=== PATIENT | male | born 1940 | race African-American/Black ===

== ENCOUNTER → 2016-05-19 | Outpatient (CLI) | payer MEDICARE ==
[2015-06-03 23:41] VITALS: BP 180/75
[~2016-05-19] MED LIST: ALLO300T PO; ASPI81TA2 PO; ATORVASTATIN CA80 MG PO; FINA5TAB4 PO; METO25TA9 PO; TAMS0.4C2 PO
--- NOTE | 2016-05-20 10:45 | SLEEP ---
DATE OF STUDY: 05/19/2016 ATTENDING PHYSICIAN: Dr. Oren Silvestre. The patient is 75 years old who weighs 270 pounds with a BMI of 38. The patient's Jerome score was 3. Sleep study was performed at [facility]. This was a split night study. During the night of study, the patient spent 496 minutes in bed and slept for 395 minutes with a sleep efficiency of 80%. The patient's sleep latency was 7 minutes with a REM latency of 178 minutes. Overall, sleep architecture showed increased stage I sleep, normal stage II and slow wave sleep and normal REM sleep. During the initial diagnostic portion of the study, the patient slept for 155 minutes. During this time, there were 10 obstructive apneas, 85 mixed apneas, no central apneas and 98 hypopneas. The patient's apnea/hypopnea index during the diagnostic portion was 75 per hour, supine index 72 per hour and REM index was 51 per hour. EKG monitoring revealed normal sinus rhythm. No sustained arrhythmias were observed. Average heart rate was 87 beats per minute. Review of nocturnal oximetry study revealed a mean oxygen saturation of 90% with the lowest of 77%. 29% of time oxygen saturation remained between 80% and 89%. PLMS were seen at index of 20 per hour, but only 1 per hour caused EEG arousals. The patient met the criteria for CPAP initiation. It was started at 5 cm of water and titrated up to 15 cm of water. Although there was a significant improvement in the patient's apnea/hypopnea index, but complete resolution was not obtained. The patient slept for 37 minutes at the final pressure of 15 cm of water and AHI was 13 per hour. The patient had a lateral REM sleep. The patient's saturation remained above 91% at the final pressure. IMPRESSION: 1. Severe sleep apnea-hypopnea syndrome with an AHI of 75 per hour. 2. Nocturnal hypoxia secondary to obstructive sleep apnea, but resolved with CPAP. 3. Moderate PLMS at an index of 20 per hour, but only 1 per hour caused EEG arousals. This does not need to be treated. RECOMMENDATIONS: 1. Optimum CPAP pressure was not achieved on this split night study. I would recommend that the patient should be placed on auto CPAP with a maximum pressure of 20 cm of water and a minimum pressure of 14 cm of water. 2. Follow up in 4-6 weeks along with a download information to assess compliance with CPAP and to document clinical improvement. Any adjustment in pressure can be made if the AHI remains above 5 per hour. 3. Weight loss is strongly advised. 4. Avoid [employer] depressants. 5. Caution regarding driving until symptoms of sleep apnea resolve with the use of CPAP. 6. Clinical evaluation for restless legs syndrome if indicated. LIAM BOTELLO MD DR: ZULEYMA/john JOB#: [id number] / [id number] OREN Karimi
== END | disposition home or self-care (01) ==
LOC: SLPLAB 18:31
PROVIDERS: ATTEND Family Medicine
DX: G47.33 Obstructive sleep apnea (adult) (pediatric) (principal)
CPT/HCPCS: 95810

== ENCOUNTER 2019-02-25 11:22 | Emergency (ER) | payer MEDICARE ==
[~2019-02-25] VITALS: Ht 180.3 cm; Wt 125.2 kg
[~2019-02-25 11:22] MED LIST changes: +ASPI-630 PO; -ASPI81TA2 PO; +METO-239 PO; -METO25TA9 PO
--- NOTE | 2019-02-25 11:52 | PHYS DOC ---
Past Medical History Past Medical History: High Cholesterol, Hypertension, Other Additional Past Medical Histor: prostate cancer Past Surgical History: Other Additional Past Surgical Histo: Prostate Alcohol Use: None Drug Use: None Adult General Chief Complaint Chief Complaint: COUGH HPI HPI Patient is a 78 year old male who presents with cough this been ongoing for 3 days. The patient also states she has associated symptoms's that he has been feeling sweaty, and hot and cold. Denies any pain at this time. Denies shortness of breath. States he has not taken any medication so far today. Review of Systems Review of Systems Constitutional: Denies fever or chills [] Eyes: Denies change in visual acuity, redness, or eye pain [] HENT: Denies nasal congestion or sore throat [] Respiratory: Reports cough. Cardiovascular: No additional information not addressed in HPI [] GI: Denies abdominal pain, nausea, vomiting, bloody stools or diarrhea [] : Denies dysuria or hematuria [] Musculoskeletal: Denies back pain or joint pain [] Integument: Denies rash or skin lesions [] Neurologic: Denies headache, focal weakness or sensory changes [] Endocrine: Denies polyuria or polydipsia [] Complete systems were reviewed and found to be within normal limits, except as documented in this note. Allergies Allergies Allergies Coded Allergies Type Severity Reaction Last Updated Verified No Known Drug Allergies 03/07/14 No Physical Exam Physical Exam Constitutional: Well developed, well nourished, no acute distress, non-toxic appearance. [] HENT: Normocephalic, atraumatic, bilateral external ears normal, oropharynx moist, no oral exudates, nose normal. [] Eyes: PERRLA, EOMI, conjunctiva normal, no discharge. [] Neck: Normal range of motion, no tenderness, supple, no stridor. [] Cardiovascular:Heart rate regular rhythm, no murmur [] Lungs & Thorax: Bilateral breath sounds clear to auscultation [] Abdomen: Bowel sounds normal, soft, no tenderness, no masses, no pulsatile masses. [] Skin: Warm, dry, no erythema, no rash. [] Back: No tenderness, no CVA tenderness. [] Extremities: No tenderness, no cyanosis, no clubbing, ROM intact, no edema. [] Neurologic: Alert and oriented X 3, normal motor function, normal sensory function, no focal deficits noted. [] Psychologic: Affect normal, judgement normal, mood normal. [] Current Patient Data Vital Signs Vital Signs Date Time Temp Pulse Resp B/P (MAP) Pulse Ox O2 Delivery O2 Flow Rate FiO2 02/25/19 11:37 98.1 98 20 180/96 (124) 96 Room Air 98.1 Lab Values Laboratory Tests Test 02/25/19 11:57 02/25/19 12:05 Influenza Type A Antigen Positive (NEGATIVE) Influenza Type B Antigen Negative (NEGATIVE) White Blood Count 7.3 x10^3/uL (4.0-11.0) Red Blood Count 4.88 x10^6/uL (4.30-5.70) Hemoglobin 14.9 g/dL (13.0-17.5) Hematocrit 45.1 % (39.0-53.0) Mean Corpuscular Volume 93 fL (79-100) Mean Corpuscular Hemoglobin 31 pg (25-35) Mean Corpuscular Hemoglobin Concent 33 g/dL (31-37) Red Cell Distribution Width 15.2 % (11.5-14.5) H Platelet Count 149 x10^3/uL (140-400) Neutrophils (%) (Auto) 83 % (31-73) H Lymphocytes (%) (Auto) 8 % (24-48) L Monocytes (%) (Auto) 8 % (0-9) Eosinophils (%) (Auto) 0 % (0-3) Basophils (%) (Auto) 1 % (0-3) Neutrophils # (Auto) 6.1 x10^3/uL (1.8-7.7) Lymphocytes # (Auto) 0.6 x10^3/uL (1.0-4.8) L Monocytes # (Auto) 0.6 x10^3/uL (0.0-1.1) Eosinophils # (Auto) 0.0 x10^3/uL (0.0-0.7) Basophils # (Auto) 0.0 x10^3/uL (0.0-0.2) Sodium Level 136 mmol/L (136-145) Potassium Level 3.7 mmol/L (3.5-5.1) Chloride Level 99 mmol/L (98-107) Carbon Dioxide Level 24 mmol/L (21-32) Anion Gap 13 (6-14) Blood Urea Nitrogen 10 mg/dL (8-26) Creatinine 1.3 mg/dL (0.7-1.3) Estimated GFR (Cockcroft-Gault) 64.8 BUN/Creatinine Ratio 8 (6-20) Glucose Level 116 mg/dL (70-99) H Calcium Level 9.8 mg/dL (8.5-10.1) Total Bilirubin 0.9 mg/dL (0.2-1.0) Aspartate Amino Transferase (AST) 41 U/L (15-37) H Alanine Aminotransferase (ALT) 27 U/L (16-63) Alkaline Phosphatase 94 U/L (46-116) Total Protein 9.0 g/dL (6.4-8.2) H Albumin 4.1 g/dL (3.4-5.0) Albumin/Globulin Ratio 0.8 (1.0-1.7) L Laboratory Tests 02/25/19 12:05 Laboratory Tests 02/25/19 12:05 EKG EKG [] Radiology/Procedures Radiology/Procedures [][facility] [address] [place] [address] IMAGING REPORT Signed PATIENT: SHAYNA TEJEDA ACCOUNT: [id number] : 1940 LOCATION: ER AGE: 78 SEX: M EXAM STATUS: REG ER ORD. PHYSICIAN: TARAN CORREA APRN REASON: cough, fever,pt states has hacking cough and sweating. PROCEDURE: CHEST PA & LATERAL Study: CHEST PA LATERAL Indication: Cough and fever. Comparison: 03/19/2014 Findings: Unchanged cardiomediastinal silhouette and sulaiman. No lobar consolidation, pleural effusion or pneumothorax. The diaphragm is flattened and the AP dimension of the chest increased. Impression: 1. No acute abnormality by radiography. 2. Findings suggestive of underlying emphysema. Electronically signed by: TIARA STRICKLAND MD (02/25/2019 12:28 PM) [facility] DICTATED and SIGNED BY: TIARA STRICKLAND MD DATE: 02/25/19 9108 Course & Med Decision Making Course & Med Decision Making Pertinent Labs and Imaging studies reviewed. (See chart for details) Will get labs and chest x-ray. Labs show Flu A positive. Labs are otherwise unremarkable. Chest x-ray is unremarkable. Dragon Disclaimer Dragon Disclaimer This electronic medical record was generated, in whole or in part, using a voice recognition dictation system. Departure Departure Impression: Primary Impression: Influenza A Disposition: HOME, SELF-CARE Condition: STABLE Referrals: BERT ARRIAGA MD (PCP) Patient Instructions: Influenza A (H1N1) Additional Instructions: Thank you for visiting [facility]. We appreciate you trusting us with your care. If any additional problems come up don't hesitate to return to visit us. Please follow up with your primary care provider so they can plan additional care if needed and know about the problem that you had. If symptoms worsen come back to the Emergency Department. Any concerning symptoms that start such as chest pain, shortness of air, weakness or numbness on one side of the body, running high fevers or any other concerning symptoms return to the ER. Please drink plenty fluids and get plenty rest. Scripts Benzonatate (TESSALON PERLE) 100 Mg Capsule 100 MG PO TID PRN for COUGH, #21 CAP Prov: TARAN CORREA APRN 02/25/19 TARAN CORREA APRN Feb 25, 2019 11:52
[2019-02-25 12:24] LABS: INFLUENZA B PATIENT NEGATIVE (NEGATIVE)
[2019-02-25 12:25] LABS: INFLUENZA A PATIENT POSITIVE (NEGATIVE)
[2019-02-25 12:28] LABS: BASO % 1 % (0-3); EOS % 0 % (0-3); HEMATOCRIT 45.1 % (39.0-53.0); HEMOGLOBIN 14.9 g/dL (13.0-17.5); LYMPH # 0.6 x10^3/uL (1.0-4.8); LYMPH % 8 % (24-48); MEAN CORPUSCULAR HEMOGLOBIN 31 pg (25-35); MEAN CORPUSCULAR HGB CONC 33 g/dL (31-37); MEAN CORPUSCULAR VOLUME 93 fL (79-100); MONO # 0.6 x10^3/uL (0.0-1.1); MONO % 8 % (0-9); NEUT # 6.1 x10^3/uL (1.8-7.7); NEUT % 83 % (31-73); PLATELET COUNT 149 x10^3/uL (140-400); RED BLOOD COUNT 4.88 x10^6/uL (4.30-5.70); RED CELL DISTRIBUTION WIDTH 15.2 % (11.5-14.5); WHITE BLOOD COUNT 7.3 x10^3/uL (4.0-11.0)
--- NOTE | 2019-02-25 12:31 | RAD ---
Study: CHEST PA LATERAL Indication: Cough and fever. Comparison: 03/19/2014 Findings: Unchanged cardiomediastinal silhouette and sulaiman. No lobar consolidation, pleural effusion or pneumothorax. The diaphragm is flattened and the AP dimension of the chest increased. Impression: 1. No acute abnormality by radiography. 2. Findings suggestive of underlying emphysema. Electronically signed by: TIARA STRICKLAND MD (02/25/2019 12:28 PM) [facility]
[2019-02-25 12:36] LABS: CALCIUM 9.8 mg/dL (8.5-10.1); CREATININE 1.3 mg/dL (0.7-1.3); GFR 64.8; POTASSIUM 3.7 mmol/L (3.5-5.1)
[2019-02-25 12:49] LABS: ALBUMIN 4.1 g/dL (3.4-5.0); ALBUMIN/GLOBULIN RATIO 0.8 (1.0-1.7); TOTAL BILIRUBIN 0.9 mg/dL (0.2-1.0)
[2019-02-25 13:00] VITALS: BP 182/87
[2019-02-25] MEDS ORDERED: BENZ100C PO (13:16)
== END 2019-02-25 13:20 | disposition home or self-care (01) ==
LOC: ER 11:25
DX: J10.1 Influenza due to other identified influenza virus with other respiratory manifestations (principal); E78.00 Pure hypercholesterolemia, unspecified; I10 Essential (primary) hypertension
CPT/HCPCS: 36415; 71046; 80053; 85025; 87804; 99285-25

== ENCOUNTER 2019-02-28 22:35 | Emergency (ER) | payer MEDICARE ==
[~2019-02-28] VITALS: Ht 180.3 cm; Wt 125.2 kg
[~2019-02-28 22:35] MED LIST changes: +BENZ100C PO
[2019-02-28] MEDS ORDERED: ONDANSETRON ODT 4 MG TAB.RAPDIS. ONE (22:48)
[2019-02-28] MEDS ORDERED: ONDANSETRON ODT 4 MG TAB.RAPDIS. PO ONE (23:15)
--- NOTE | 2019-02-28 23:24 | PHYS DOC ---
Past Medical History Past Medical History: High Cholesterol, Hypertension, Other Additional Past Medical Histor: prostate cancer Past Surgical History: Other Additional Past Surgical Histo: Prostate Alcohol Use: None Drug Use: None Adult General Chief Complaint Chief Complaint: ABDOMINAL PAIN HPI HPI 78-year-old male presents to emergency Department complaints of nausea. Patient was diagnosed with influenza a on Tuesday he subsequently was seen by his primary care physician today and started on Z-Bruce. Patient states he took the Z-Bruce on an empty stomach at least 2 pills subsequently developed nausea afterwards. He denies any vomiting. Patient is afebrile, he denies any chest pain, shortness breath, vomiting headache or visual changes. Nothing makes his symptoms worse, nothing makes his symptoms better. Review of Systems Review of Systems Constitutional: Denies fever or chills [] HENT: Denies nasal congestion or sore throat [] Respiratory: Denies cough or shortness of breath [] Cardiovascular: No additional information not addressed in HPI [] GI: Denies abdominal pain, + nausea, no vomiting, bloody stools or diarrhea [] : Denies dysuria or hematuria [] Musculoskeletal: Denies back pain or joint pain [] Neurologic: Denies headache, focal weakness or sensory changes [] All other systems were reviewed and found to be within normal limits, except as documented in this note. Current Medications Current Medications Current Medications Medications (Trade) Dose Ordered Sig/Volodymyr Start Time Stop Time Status Last Admin Dose Admin Ondansetron HCl (Zofran Odt) 4 mg 1X ONCE 02/28/19 23:15 02/28/19 23:16 DC 02/28/19 22:45 4 MG Ondansetron HCl (Zofran) 4 mg 1X ONCE 03/01/19 00:00 03/01/19 00:01 DC 03/01/19 00:35 4 MG Sodium Chloride 1,000 ml @ 1,000 mls/hr 1X ONCE 03/01/19 00:00 03/01/19 00:59 DC 03/01/19 00:35 1,000 MLS/HR Allergies Allergies Allergies Coded Allergies Type Severity Reaction Last Updated Verified No Known Drug Allergies 03/07/14 No Physical Exam Physical Exam Constitutional: Well developed, well nourished, no acute distress, non-toxic appearance. [] HENT: Normocephalic, atraumatic, bilateral external ears normal, oropharynx moist, no oral exudates, nose normal. [] Eyes: PERRLA, EOMI, conjunctiva normal, no discharge. [] Cardiovascular:Heart rate regular rhythm, no murmur [] Lungs & Thorax: Bilateral breath sounds clear to auscultation [] Abdomen: Bowel sounds normal, soft, no tenderness, no masses, no pulsatile masses. [] Skin: Warm, dry, no erythema, no rash. [] Back: No tenderness, no CVA tenderness. [] Extremities: No tenderness, no edema. [] Neurologic: Alert and oriented X 3, no focal deficits noted. [] Psychologic: Affect normal, judgement normal, mood normal. [] Current Patient Data Vital Signs Vital Signs Date Time Temp Pulse Resp B/P (MAP) Pulse Ox O2 Delivery O2 Flow Rate FiO2 03/01/19 00:44 66 17 187/81 (116) 99 Room Air 02/28/19 22:37 98.7 98.7 Lab Values Laboratory Tests Test 03/01/19 00:30 White Blood Count 6.0 x10^3/uL (4.0-11.0) Red Blood Count 4.99 x10^6/uL (4.30-5.70) Hemoglobin 15.2 g/dL (13.0-17.5) Hematocrit 45.8 % (39.0-53.0) Mean Corpuscular Volume 92 fL (79-100) Mean Corpuscular Hemoglobin 31 pg (25-35) Mean Corpuscular Hemoglobin Concent 33 g/dL (31-37) Red Cell Distribution Width 14.7 % (11.5-14.5) H Platelet Count 181 x10^3/uL (140-400) Neutrophils (%) (Auto) 68 % (31-73) Lymphocytes (%) (Auto) 21 % (24-48) L Monocytes (%) (Auto) 9 % (0-9) Eosinophils (%) (Auto) 0 % (0-3) Basophils (%) (Auto) 1 % (0-3) Neutrophils # (Auto) 4.1 x10^3/uL (1.8-7.7) Lymphocytes # (Auto) 1.3 x10^3/uL (1.0-4.8) Monocytes # (Auto) 0.5 x10^3/uL (0.0-1.1) Eosinophils # (Auto) 0.0 x10^3/uL (0.0-0.7) Basophils # (Auto) 0.1 x10^3/uL (0.0-0.2) Sodium Level 138 mmol/L (136-145) Potassium Level 3.5 mmol/L (3.5-5.1) Chloride Level 101 mmol/L (98-107) Carbon Dioxide Level 22 mmol/L (21-32) Anion Gap 15 (6-14) H Blood Urea Nitrogen 17 mg/dL (8-26) Creatinine 1.5 mg/dL (0.7-1.3) H Estimated GFR (Cockcroft-Gault) 54.9 BUN/Creatinine Ratio 11 (6-20) Glucose Level 182 mg/dL (70-99) H Calcium Level 9.9 mg/dL (8.5-10.1) Total Bilirubin 1.0 mg/dL (0.2-1.0) Aspartate Amino Transferase (AST) 40 U/L (15-37) H Alanine Aminotransferase (ALT) 36 U/L (16-63) Alkaline Phosphatase 80 U/L (46-116) Total Protein 8.8 g/dL (6.4-8.2) H Albumin 3.9 g/dL (3.4-5.0) Albumin/Globulin Ratio 0.8 (1.0-1.7) L Laboratory Tests 03/01/19 00:30 Laboratory Tests 03/01/19 00:30 EKG EKG [] Radiology/Procedures Radiology/Procedures [] Course & Med Decision Making Course & Med Decision Making Pertinent Labs and Imaging studies reviewed. (See chart for details) []78-year-old male presents to emergency Department complaints of nausea. Patient was diagnosed with influenza a on Tuesday he subsequently was seen by his primary care physician today and started on Z-Bruce. Patient states he took the Z-Bruce on an empty stomach at least 2 pills subsequently developed nausea afterwards. He denies any vomiting. Patient is afebrile, he denies any chest pain, shortness breath, vomiting headache or visual changes. Nothing makes his symptoms worse, nothing makes his symptoms better. Patient provided with Zofran by mouth. He states no improvement. IV saline lock initiated with IV Zofran, IV fluids. Labs obtained. Labs reviewed, creatinine 1.5, otherwise unremarkable Patient overall improved Plan Dc home with follow up as outpatient with PCP Recommend po intake prior to abx use Dragon Disclaimer Dragon Disclaimer This electronic medical record was generated, in whole or in part, using a voice recognition dictation system. Departure Departure Impression: Primary Impression: Nausea Disposition: HOME, SELF-CARE Condition: IMPROVED Referrals: OREN MONDRAGON (PCP) Patient Instructions: Nausea, Adult, [id number] Additional Instructions: Recommend follow up with PCP 3 - 5 days Return to the ER with worsening symptoms, intractable pain, fever, altered mental status Tylenol/Motrin as needed for pain Zofran as needed Scripts Ondansetron Hcl (ZOFRAN) 4 Mg Tablet 1 TAB PO PRN Q6-8HRS for nausea, #12 TAB Prov: FRANCISCO JAVIER RAMOS MD 03/01/19 FRANCISCO JAVIER RAMOS MD Feb 28, 2019 23:24
[2019-03-01] MEDS ORDERED: IV NORMAL SALINE 1000ML BAG 1,000 ML IV ONE
[2019-03-01] MEDS ORDERED: ONDANSETRON PF 4 MG/2 ML VIAL. IV ONE
[2019-03-01 00:40] LABS: BASO # 0.1 x10^3/uL (0.0-0.2); BASO % 1 % (0-3); EOS % 0 % (0-3); HEMATOCRIT 45.8 % (39.0-53.0); HEMOGLOBIN 15.2 g/dL (13.0-17.5); LYMPH # 1.3 x10^3/uL (1.0-4.8); LYMPH % 21 % (24-48); MEAN CORPUSCULAR HEMOGLOBIN 31 pg (25-35); MEAN CORPUSCULAR HGB CONC 33 g/dL (31-37); MEAN CORPUSCULAR VOLUME 92 fL (79-100); MONO # 0.5 x10^3/uL (0.0-1.1); MONO % 9 % (0-9); NEUT # 4.1 x10^3/uL (1.8-7.7); NEUT % 68 % (31-73); PLATELET COUNT 181 x10^3/uL (140-400); RED BLOOD COUNT 4.99 x10^6/uL (4.30-5.70); RED CELL DISTRIBUTION WIDTH 14.7 % (11.5-14.5)
[2019-03-01 00:59] LABS: CALCIUM 9.9 mg/dL (8.5-10.1); CREATININE 1.5 mg/dL (0.7-1.3); GFR 54.9; POTASSIUM 3.5 mmol/L (3.5-5.1)
[2019-03-01 01:05] LABS: ALBUMIN 3.9 g/dL (3.4-5.0); ALBUMIN/GLOBULIN RATIO 0.8 (1.0-1.7); TOTAL PROTEIN 8.8 g/dL (6.4-8.2)
[2019-03-01 01:14] VITALS: BP 190/84
[2019-03-01] MEDS ORDERED: ONDA4TAB7 PO (01:14)
== END 2019-03-01 01:32 | disposition home or self-care (01) ==
LOC: ER 22:35
DX: R11.0 Nausea (principal); I10 Essential (primary) hypertension; E78.00 Pure hypercholesterolemia, unspecified
CPT/HCPCS: 36415; 80053; 85025; 96374; 99284; J2405; J7030; Q0162

== ENCOUNTER → 2020-04-01 | Outpatient (CLI) | payer MEDICARE ==
[~2020-04-01] MED LIST changes: +ONDA4TAB7 PO; +ZOLPIDEM 5 MG TABLET. PO ONE
--- NOTE | 2020-04-02 11:05 | SLEEP ---
DATE OF STUDY: SLEEP STUDY ATTENDING PHYSICIAN: Dr. Oren Silvestre. The patient is 79 years old, who weighs 262 pounds with a BMI of 36. The patient had a sleep study back in 05/2016. At that time, he had severe MARYA at an AHI of 75 per hour. He was recommended to have an auto CPAP as an optimum CVAP pressure was not achieved. He was recommended a maximum CPAP pressure of 20 and a minimum of 14 cm of water. The patient could not tolerate CPAP and did not use it for last 6 months. He was referred back for another titration study. During the night study, the patient spent 484 minutes in bed and slept for 310 minutes with a sleep efficiency of 64%. Sleep latency was 26 minutes with a REM latency of 48 minutes. Sleep architecture showed increased stage 1 and stage 2 sleep, absent slow wave and reduced REM sleep. The patient was started on BiPAP at a pressure of 15/10. The pressure was titrated all the way up to 25/18. Backup rate of 10 was added due to persistent central apneas. The patient was then switched to AVAPS/auto SV. At the final pressure, the patient slept for 51 minutes. Therapeutic pressure was not achieved, However patient did best at the the following pressure I would recommend that the patient should be placed on AVAPS at a max pressure of of 30, E-PAP max of 15 cm of water, E-PAP minimum of 4. Maximum pressure support of 20 and a minimum pressure support minimum of 4.Rate auto. The patient used full-face medium mask.Patients AHI was 15/hr, all central apneas at the final AVAPS EKG monitoring revealed an average heart rate of 84 beats per minute, no sustained arrhythmias observed. No PLMs observed. IMPRESSION: 1. Severe sleep apnea with persistence of central apneas throughout the night with inability to obtain a therapeutic BiPAP pressure. Patient did better with AVAPS 2. Nocturnal hypoxia, resolved with final AVAPS pressure. 3. No clinically significant PLMs. RECOMMENDATIONS: 1. The patient should be placed on AVAPS. max pressure of 30 cm, E-PAP max of 15 cm of water, E-PAP minimum of 4 cm of water. Maximum pressure support of 20, minimum pressure support of 4 and rate auto. Patients central apneas were likely "Treatment emergent central apneas" , however patient should be ruled out for any cardiomyopathy contributing to central apnea. Patient should avoid any narcotics. 2. The patient should have a followup in 4-6 weeks to assess compliance and to document clinical improvement. 3. Weight loss is strongly advised. 4. Avoid [employer] depressants. 5. Cautioned regarding driving until symptoms of sleep apnea resolve with above recommendations. LIAM BOTELLO MD DR: ZULEYMA/john JOB#: [id number] / [id number] OREN Karimi
== END ==
LOC: RT 18:35
PROVIDERS: ATTEND Internal Medicine Critical Care Medicine
DX: G47.33 Obstructive sleep apnea (adult) (pediatric) (principal)
CPT/HCPCS: 95811